=== PATIENT | female | born 1965 | race Caucasian/White ===

== ENCOUNTER 2019-10-26 14:39 | Outpatient (CLI) | payer BC, SELFPAY ==
--- NOTE | ~2019-10-26 | MM_ITS ---
EXAMINATION: MM screening [facility] BI w ezra HISTORY: Screening mammogram TECHNIQUE: Craniocaudal and mediolateral oblique 3-D tomosynthesis images were obtained and synthetic 2-D images were generated. CAD analysis was submitted and interpreted. COMPARISON: 10/20/2018, 09/08/2017, 09/04/2016 bilateral digital screening mammogram examinations BREAST PARENCHYMAL COMPOSITION: There are scattered areas of fibroglandular density. FINDINGS: A biopsy marker is noted on the right. There are several biopsy markers on the left. Histor y of prior benign bilateral breast biopsies. There is no evidence of suspicious mass, calcification, or architectural distortion to suggest malignancy in either breast. There has been no suspicious inte rval change. IMPRESSION: 1. No mammographic evidence of malignancy. 2. Recommend routine screening mammography in one year. BI-RADS Category 1: Negative Reviewed, dictated and finalized at location A. 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
== END 2019-10-26 14:40 | disposition home or self-care (01) ==
LOC: ANHIMG 14:42
PROVIDERS: PCP Internal Medicine; Visit Provider Student in an Organized Health Care Education/Training Program
DX: Z12.31 Encounter for screening mammogram for malignant neoplasm of breast (principal)
CPT/HCPCS: 77063; 77067

== ENCOUNTER 2020-11-05 08:43 | Outpatient (CLI) | payer BC, SELFPAY ==
--- NOTE | ~2020-11-05 | MM_ITS ---
EXAMINATION: MM screening [facility] w [facility] HISTORY: Screening mammogram TECHNIQUE: Craniocaudal and mediolateral oblique 3-D tomosynthesis images were obtained and synthetic 2-D images were generated. CAD analysis was submitted and interpreted. COMPARISON: 10/26/2019, 10/20/2018, 09/08/2017 bilateral digital screening mammogram examinations BREAST PARENCHYMAL COMPOSITION: There are scattered areas of fibroglandular density. FINDINGS: There are bilateral breast biopsy markers; history of prior benign bilateral breast biopsie s. There is no evidence of suspicious mass, calcification, or architectural distortion to suggest mal ignancy in either breast. There has been no suspicious interval change. IMPRESSION: 1. No mammographic evidence of malignancy. 2. Recommend routine screening mammography in one year. BI-RADS Category 1: Negative Reviewed, dictated and finalized at location A. 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
== END 2020-11-05 08:44 | disposition home or self-care (01) ==
LOC: ANHIMG 08:46
PROVIDERS: PCP Internal Medicine; Visit Provider Student in an Organized Health Care Education/Training Program
DX: Z12.31 Encounter for screening mammogram for malignant neoplasm of breast (principal)
CPT/HCPCS: 77063; 77067

== ENCOUNTER 2021-11-12 17:29 | Outpatient (CLI) | payer BC, SELFPAY ==
--- NOTE | ~2021-11-12 | MM_ITS ---
EXAMINATION: MM screening [facility] BI w ezra HISTORY: Screening TECHNIQUE: Craniocaudal and mediolateral oblique 3-D tomosynthesis images were obtained and synthetic 2-D images were generated. CAD analysis was submitted and interpreted. COMPARISON: Comparison to multiple prior studies sequentially, with oldest reviewed study dated 04/2016. BREAST PARENCHYMAL COMPOSITION: There are scattered areas of fibroglandular density. FINDINGS: There is no evidence of suspicious mass, calcification, or architectural distortion to sugg est malignancy in either breast. There has been no suspicious interval change. IMPRESSION: 1. No mammographic evidence of malignancy. 2. Recommend routine screening mammography in one year. BI-RADS Category 1: Negative Reviewed, dictated and finalized at location A. 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
== END 2021-11-12 17:30 | disposition home or self-care (01) ==
LOC: ANHIMG 17:30
PROVIDERS: PCP Internal Medicine; Visit Provider Student in an Organized Health Care Education/Training Program
DX: Z12.31 Encounter for screening mammogram for malignant neoplasm of breast (principal)
CPT/HCPCS: 77063; 77067

== ENCOUNTER 2022-12-27 08:24 | Outpatient (CLI) | payer BC, SELFPAY ==
--- NOTE | ~2022-12-27 | MM_ITS ---
EXAMINATION: MM screening [facility] w ez[facility] HISTORY: Screening mammogram TECHNIQUE: Craniocaudal and mediolateral oblique 3-D tomosynthesis images were obtained and synthetic 2-D images were generated. CAD analysis was submitted and interpreted. COMPARISON: November 12, 2021, August 05, 2021, October 26, 2019 bilateral screening mammogram [facility] BREAST PARENCHYMAL COMPOSITION: There are scattered areas of fibroglandular density. FINDINGS: There is a biopsy marker on the right than several biopsy markers on the left; history of b ilateral benign breast biopsies. There is no evidence of suspicious mass, calcification, or microsoft dynamics manager architect ural distortion to suggest malignancy in either breast. There has been no suspicious interval change. IMPRESSION: 1. No mammographic evidence of malignancy. 2. Recommend routine screening mammography in one year. BI-RADS Category 1: Negative Reviewed, dictated and finalized at location A.
== END 2022-12-27 08:25 | disposition home or self-care (01) ==
LOC: ANHIMG 08:30
PROVIDERS: PCP Obstetrics & Gynecology; Visit Provider Physician Assistant
DX: Z12.31 Encounter for screening mammogram for malignant neoplasm of breast (principal)
CPT/HCPCS: 77063; 77067

== ENCOUNTER 2023-06-24 16:44 | Emergency (ER) | payer BC, SELFPAY ==
--- NOTE | ~2023-06-24 | XR_ITS ---
EXAMINATION: XR ankle LT min 3V DATE: 06/24/2023 17:07 INDICATION: Twisting left ankle injury TECHNIQUE: Anteroposterior, oblique, mortise, and lateral views of the left ankle were obtained. COMPARISON: None. FINDINGS: Minimal distraction of a minute avulsion fracture fragment arising from the tip of the medial malleol us no other fractures identified. Bone alignment is normal with a congruent ankle mortise. Joint spac es are normal. Large plantar calcaneal spur. Soft tissue swelling about the ankle most prominent late [place] but also seen anteriorly and medially. IMPRESSION: 1. Minimally displaced minute avulsion fracture fragment at the tip of the medial malleolus. Reviewed, dictated and finalized at location A. IMPRESSION: 1. Minimally displaced minute avulsion fracture fragment at the tip of the medi al malleolus.
[2023-06-24 17:22] VITALS: BP 108/85; PULSE 75; RESP 16; TEMP 36.6; O2SAT 98
--- NOTE | 2023-06-24 17:41 | ED.LOWEXIN ---
HPI - Extremity Injury (Lower) General Chief Complaint: Extremity Injury, Lower Stated Complaint: L ANKLE INJURY Time Seen by Provider: 06/24/23 17:33 Source: patient and RN notes reviewed Mode of arrival: wheelchair Limitations: no limitations History of Present Illness HPI Narrative: Patient presents today complaining a left ankle injury. At 8:00 p.m. last night she rolled her left ankle off the edge of a sidewalk, injuring it. She reports some tingling in her toes in numbness to her ankle. She currently rates her pain 7/10. She has elevated the ankle and applied ice. She has taken no medication for symptoms prior to arrival. Related Data Home Medications Medication Instructions Recorded Confirmed ascorbic acid (vitamin C) 500 mg 500 mg PO DAILY 11/21/20 06/24/23 capsule cholecalciferol (vitamin D3) 25 25 mcg PO DAILY 11/21/20 mcg (1,000 unit) capsule albuterol sulfate 90 mcg/actuation 1 inh inhalation Q4H 03/25/23 06/24/23 aerosol inhaler escitalopram oxalate 20 mg tablet 20 mg PO DAILY 03/25/23 irbesartan 150 mg tablet 150 mg PO DAILY 03/25/23 nebivolol 5 mg tablet 5 mg PO DAILY 03/25/23 Allergies Allergy/AdvReac Type Severity Reaction Status Date / Time No Known Allergies Allergy Verified 06/24/23 17:26 Review of Systems Review of Systems: CONSTITUTIONAL: Denies body aches, fever, chills, or sweats. EYES: Denies visual changes, redness, or discharge. ENT: Denies rhinorrhea, congestion, sore throat, or otalgia. CARDIOVASCULAR: Denies chest pain, palpitations, or edema. RESPIRATORY: Denies cough or dyspnea. GASTROINTESTINAL: Denies abdominal pain, nausea, vomiting, or diarrhea. GENITOURINARY: Denies dysuria or hematuria. SKIN: Denies rash, itching, or wounds. MUSCULOSKELETAL: Denies back pain, or myalgia.+ left ankle injury NEUROLOGIC: Denies headache, numbness, tingling, or weakness. PSYCH: Denies depression or anxiety. [facility] Past Medical History Medical History Hypertension Vaginal delivery Varicose vein of leg Surgical History Surgical History History of breast biopsy History of endometrial ablation History of tubal ligation Previous section [place] teeth removed Family History Family History Grandparent Family history of lung cancer, Onset Age: 72 Family history of malignant neoplasm of esophagus, Onset Age: 75 Family history of malignant neoplasm Mother Cerebrovascular accident Hypertension Social History Social History Smoking status: Never smoker Second hand tobacco smoke exposure: No Alcohol intake: current Substance use: never Substance use type: does not use Lack of Transportation: No Lack of Food: Never True Current Housing: I Have Housing Concerned About Future Housing: No Difficulty Paying Gas/Electric Bills: No Difficulty Paying for Meds: No Currently Unemployed: YES Education: High School Diploma/GED Difficulty w/ Childcare or Family Care: No Living arrangements: with family Occupation/Education: occupation Gender identity (if verbalized by the patient): Female Sexual Orientation (if Verbalized by the Patient): Straight or Heterosexual Spiritual care concerns: No Comments At time of signature, I have reviewed and agree with nursing past medical, surgical, social and family history unless otherwise noted. Please see nursing chart for further information. There is no relevant family history pertinent to the presenting complaint Exam Narrative: GENERAL: Well-appearing, well-nourished, and in no acute distress. HEAD: Normocephalic, atraumatic. EYES: EOMI. No redness or drainage. Conjunctivae normal. ENT: Mucous membranes pink and moist. NECK: Normal AROM.
== END 2023-06-24 17:57 | disposition home or self-care (01) ==
PROVIDERS: Emergency Provider Nurse Practitioner; PCP Physician Assistant
DX: S82.892A Other fracture of left lower leg, initial encounter for closed fracture (principal); S93.402A Sprain of unspecified ligament of left ankle, initial encounter; I10 Essential (primary) hypertension; Z79.899 Other long term (current) drug therapy; X50.0XXA Overexertion from strenuous movement or load, initial encounter
CPT/HCPCS: 73610; 99214; G0463

== ENCOUNTER 2023-12-31 13:29 | Outpatient (CLI) | payer BC, SELFPAY ==
--- NOTE | ~2023-12-31 | MM_ITS ---
EXAMINATION: MM screening [facility] BI w ezra HISTORY: Screening TECHNIQUE: Craniocaudal and mediolateral oblique 3-D tomosynthesis images were obtained and synthetic 2-D images were generated. CAD analysis was submitted and interpreted. COMPARISON: Comparison to multiple prior studies sequentially, with oldest reviewed study dated 08/28. BREAST PARENCHYMAL COMPOSITION: There are scattered areas of fibroglandular density. FINDINGS: There is no evidence of suspicious mass, calcification, or architectural distortion to sugg est malignancy in either breast. There has been no suspicious interval change. IMPRESSION: 1. No mammographic evidence of malignancy. 2. Recommend routine screening mammography in one year. BI-RADS Category 1: Negative Reviewed, dictated and finalized at location A.
== END 2023-12-31 13:30 | disposition home or self-care (01) ==
PROVIDERS: PCP Physician Assistant; Visit Provider Obstetrics & Gynecology
DX: Z12.31 Encounter for screening mammogram for malignant neoplasm of breast (principal)
CPT/HCPCS: 77063; 77067

== ENCOUNTER 2024-12-31 07:59 | Outpatient (CLI) | payer OTHER, SELFPAY ==
--- NOTE | ~2024-12-31 | MM_ITS ---
EXAMINATION: MM screening [facility] BI w ezra HISTORY: Screening TECHNIQUE: Craniocaudal and mediolateral oblique 3-D tomosynthesis images were obtained and synthetic 2-D images were generated. CAD analysis was submitted and interpreted. COMPARISON: Comparison to multiple prior studies sequentially, with oldest reviewed study dated 10/20. BREAST PARENCHYMAL COMPOSITION: Not dense: There are scattered areas of fibroglandular density. FINDINGS: There is no evidence of suspicious mass, calcification, or architectural distortion to sugg est malignancy in either breast. There has been no suspicious interval change. IMPRESSION: 1. No mammographic evidence of malignancy. 2. Recommend routine screening mammography in one year. BI-RADS Category 1: Negative Reviewed, dictated and finalized at location A.
--- OUTSIDE RECORDS SUMMARY | 2024-12-31 08:03 | XMS_ITS | Clinical Summary ---
Author Organization [facility] Address [address] [place] [phone] Care Team Providers Care Contact Lens Polisher Name Role Phone Rufina Adler Primary Care Provider [phone] Allergies No known active allergies Medications ascorbic acid (VITAMIN C) 500 mg tablet,chewabl e Active cholecalcifero l, vitamin D3, (VITAMIN D3 ORAL) Take by mouth Active zinc 50 mg tablet Take by mouth Active turmeric root extract 500 mg capsule Take by mouth Active fluticasone propionate (FLONASE) 50 mcg/actuation nasal spray Administer 2 sprays into each nostril daily 16 g 5 022 Active fexofenadine (SHAVON) 180 mg tablet Take 1 tablet (180 mg total) by mouth daily as needed (allergies) 90 tablet 1 022 Active albuterol HFA (PROVENTIL HFA,VENTOLIN HFA,PROAIR HFA) 90 mcg/actuation inhaler INHALE 2 PUFFS EVERY FOUR HOURS NEEDED FOR WHEEZING 8.5 g 2 024 Active liraglutide, weight loss, 3 mg/0.5 mL (18 mg/3 mL) pen injectorIndica tions:Weight Loss Management for Obese Patient (BMI >= 30) Indications: weight loss management for a person with obesity Inject 0.6mg subcutaneously once daily x 7 days, then Increase to 1.2mg subcutaneously once daily x 7days, then Increase to 1.8mg subcutaneously once daily x 7 days, then Increase to 2.4mg subcutaneously once daily x 7 days, then Increase to 3 mg subcutaneously once daily as maintenance 3 mL 1 025 Active semaglutide (WEGOVY) 0.25 mg/0.5 mL auto-injectorI ndications:Obe sity, unspecified class, unspecified obesity type, unspecified whether serious comorbidity present Inject 0.25 mg under the skin every 7 days 2 mL 025 2024 Discontinued(R eorder) semaglutide (WEGOVY) 0.25 mg/0.5 mL auto-injectorI ndications:Obe sity, unspecified class, unspecified obesity type, unspecified whether serious comorbidity present Inject 0.25 mg under the skin every 7 days 2 mL 025 2024 Discontinued(R eorder) semaglutide (WEGOVY) 0.25 mg/0.5 mL auto-injectorI ndications:Obe sity, unspecified class, unspecified obesity type, unspecified whether serious comorbidity present Inject 0.25 mg under the skin every 7 days 2 mL 025 2024 Discontinued Active Problems Problem Noted Date Diagnosed Date Colon cancer screening 11/20/2024 Assessment & Plan (11/20/2024 4:22 PM [facility]): Patient is due for colon cancer screening. Referral placed Breast cancer screening by mammogram 11/20/2024 Assessment & Plan (11/20/2024 4:22 PM [facility]): Mammogram order provided BMI 28.0-28.9,adult 11/09/2024 Assessment & Plan (11/09/2024 7:19 AM [facility]): BMI Follow-up includes: Discussed diet and exercising counseling. Recurrent major depression 01/27/2024 Assessment & Plan (02/22/2024 9:18 PM CDT): Stable with Effexor 37.5. Sleep disturbance 10/27/2022 Assessment & Plan (10/27/2022 9:12 AM [facility]): Patient notes that she does have trouble falling asleep. She states it is primarily because her h ead will not shut off . Discussed medication interventions like trazodone versus other sleep agents. Also discussed an SSRI like Lexapro. Most interested in Lexapro. Hesitant to start 2 medicines at the same time. Will go ahead and start the irbesartan for blood pressure. At her follow-up in 3-4 weeks will then re-assess and if continues to have sleep issues will consider the Lexapro. Seasonal allergies 10/27/2022 Assessment & Plan (10/27/2022 9:13 AM [facility]): Encouraged daily use of her Shavon and Flonase. She can consider adding in a Mucinex if she is having a lot of postnasal drainage to see if this is causing the cough verses more of a reactive airway from the cold. 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 Also encouraged her to keep her face covered in the cold air so she is breathing more warm areas set of completely cold air. Will continue to monitor closely and follow-up if her symptoms worsen Vitamin D deficiency 10/17/2021 Assessment & Plan (06/14/2024 8:24 AM CDT): Continue to supplement Assessment & Plan (10/29/2023 8:29 AM [facility]): Supplement Assessment & Plan (10/27/2022 9:08 AM [facility]): Supplement Assessment & Plan (11/27/2021 8:02 AM [facility]): Continue vitamin-D supplementation Assessment & Plan (10/17/2021 6:50 PM [facility]): Supplement Primary hypertension 10/17/2021 Assessment & Plan (11/20/2024 4:21 PM [facility]): Patient has stopped all her blood pressure medicines. Readings have been stable. She can continue with home readings and if they elevate above 125 over 85 she needs to call and consider restarting low-dose medication. She is in agreement with the plan Assessment & Plan (06/14/2024 8:24 AM CDT): Bp is stable/in acceptable range for any co-morbidities. Encouraged to limit sodium intake and exercise for weight control. Continue Bystolic 5 mg. I added this back on her list. Will have her restart the irbesartan at 75 mg in the a.m.. Continue the amlodipine decreasing to 2.5 mg in the p.m.. Encouraged her to MyChart in the next week or 2 with readings to make sure that they remain stable Assessment & Plan (02/22/2024 9:16 PM CDT): Bp is stable/in acceptable range for any co-morbidities. Encouraged to limit sodium intake and exercise for weight control. Appears well controlled. Continue the irbesartan 150 daily and amlodipine 5 mg daily. 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 If systolic remains below 110, May need to cut the amlodipine in half. I would also avoid diuretic in this patient. Assessment & Plan (10/29/2023 8:29 AM [facility]): This is a significant, separately identifiable problem that was evaluated and managed on the same day as the wellness exam Encouraged to limit sodium intake and exercise for weight control. Reviewed it is unlikely that the antihypertensive or contributing to weight gain. Stressed the importance of better control of the blood pressure. She is willing to continue the irbesartan 150. Start amlodipine 5. She is to call in 1-2 weeks with readings. Follow-up in 2-3 months in the office to recheck. Assessment & Plan (01/24/2023 9:04 PM CDT): Bp is stable/in acceptable range for any co-morbidities. Encouraged to limit sodium intake and exercise for weight control. Continue Bystolic 5 and irbesartan 150. Assessment & Plan (11/29/2022 5:54 PM [facility]): Bp is stable/in acceptable range for any co-morbidities. Encouraged to limit sodium intake and exercise for weight control. Better controlled with the addition of the Bystolic. Continue 5 mg with the irbesartan. Will continue to monitor closely Assessment & Plan (10/27/2022 9:12 AM [facility]): This is a significant, separately identifiable problem that was evaluated and managed on the same day as the wellness exam Encouraged to limit sodium intake and exercise for weight control. Readings are better controlled with the Bystolic 5. However her home readings are still showing consistent diastolic in the low to mid 90s. She is tolerating the Bystolic well. Pulse is running in the mid 60s. Will continue Bystolic 5. Will add an ARB irbesartan 75 to her regimen. She is to take the Bystolic at night and the ear irbesartan in the morning. Recheck home readings and call if she is not beginning to see drop. Will have her back in the office in 3-4 weeks to reassess. Assessment & Plan (11/27/2021 8:02 AM [facility]): BP is still elevated but improving. Increase Bystolic to 5 mg. She may take 2 2.5 mg tablets to make the 5 mg tablets until her supply is exhausted and then will send out a 5 mg dose. Follow-up in about 2 weeks to reassess blood pressure. She has a form today that I completed that allow her to get a blood pressure cuff so she can continue to monitor her readings at home. Encouraged her to bring it to her next visit to calibrate . Encouraged to limit sodium intake and exercise for weight control. Assessment & Plan (10/17/2021 6:52 PM [facility]): This is a significant, separately identifiable problem that was evaluated and managed on the same day as the wellness exam Encouraged to limit sodium intake and exercise for weight control. Encourage dash diet and monitoring sodium intake. Discussed at length high blood pressure and sequela of untreated blood pressure. She is very aware but still very anxious about the idea of starting a blood pressure medicine. Reviewed at length the blood pressure medication options and how they work and how it could benefit some of this increased stress and h igh energy feeling that she has. Will start Bystolic 2.5 mg 1 daily. Reviewed risks benefits alternatives side effects and proper use. All questions were answered. Encouraged her to take it daily until she comes back and sees me. She wants to put that off for 6 weeks due to her scheduling. Advised if she is taking home readings and they are still very high may need to increase to 5 but will do that slowly. She is in agreement. Resolved Problems Problem Noted Date Diagnosed Date Resolved Date Fatigue 06/14/2024 11/20/2024 Assessment & Plan (06/14/2024 8:24 AM CDT): Probably multifactorial. Check labs and followup to re-evaluate Diabetes mellitus screening 06/14/2024 11/20/2024 Assessment & Plan (06/14/2024 8:25 AM CDT): Check labs Lipid screening 06/14/2024 11/20/2024 Assessment & Plan (06/14/2024 8:25 AM CDT): Check labs Acute cough 03/23/2024 06/14/2024 Assessment & Plan (03/23/2024 12:59 PM CDT): Patient was tested for COVID - negative Flu a and B- negative Strep - positive Acute non-recurrent pansinusitis 03/23/2024 06/14/2024 Assessment & Plan (03/23/2024 12:58 PM CDT): Start antibiotic, antihistamine (Claritin OR Zyrtec), Mucinex 12hour and Steroid nasal spray (Flonase). Push fluids. Rest. Supportive care. If sxs worsen or don\'t improve, pt is to followup in the office. Augmentin sent to the pharmacy. Reviewed risks benefits alternatives side effects and proper use Strep test came back negative after patient left. She was notified of the positive and ways to avoid transmission but that the treatment would still be the same. Strep pharyngitis 03/23/2024 06/14/2024 Assessment & Plan (03/23/2024 12:58 PM CDT): Start antibiotic, antihistamine (Claritin OR Zyrtec), Mucinex 12hour and Steroid nasal spray (Flonase). Push fluids. Rest. Supportive care. If sxs worsen or don\'t improve, pt is to followup in the office. Augmentin sent to the pharmacy. Reviewed risks benefits alternatives side effects and proper use Strep test came back negative after patient left. She was notified of the positive and ways to avoid transmission but that the treatment would still be the same. BMI 33.0-33.9,adult 10/29/2023 01/27/20 Assessment & Plan (10/29/2023 7:25 AM [facility]): Discussed the patient's BMI. The BMI is above average. BMI management plan is completed. BMI Follow-up includes: nutrition counseling, exercise counseling and education provided. Breast cancer screening by mammogram 10/29/2023 02/22/2024 Assessment & Plan (10/29/2023 8:30 AM [facility]): Mammogram order provided BMI 32.0-32.9,adult 11/25/2022 10/29/19 Assessment & Plan (01/24/2023 9:05 PM CDT): Discussed the patient's BMI. The BMI is above average. BMI management plan is completed. BMI Follow-up includes: nutrition counseling, exercise counseling and education provided. Assessment & Plan (11/25/2022 3:12 PM [facility]): Discussed the patient's BMI. The BMI is above average. BMI management plan is completed. BMI Follow-up includes: nutrition counseling, exercise counseling and education provided. Obesity (BMI 30-39.9) 11/25/20222024 Assessment & Plan (06/14/2024 7:28 AM CDT): Discussed the patient's BMI. The BMI is above average. BMI management plan is completed. BMI Follow-up includes: nutrition counseling, exercise counseling and education provided. Assessment & Plan (03/23/2024 1:00 PM CDT): Discussed the patient's BMI. The BMI is above average. BMI management plan is completed. BMI Follow-up includes: nutrition counseling, exercise counseling and education provided. Patient continues to use the Wegovy 0.5 mg. She continues to see improvement with her weight and is seeing that her appetite is being curved and she can recognize when she is full. Would like to increase to 1 mg dosing. New prescription sent. Assessment & Plan (02/22/2024 9:16 PM CDT): Discussed the patient's BMI. The BMI is above average. BMI management plan is completed. BMI Follow-up includes: nutrition counseling, exercise counseling and education provided. Assessment & Plan (10/29/2023 8:30 AM [facility]): Discussed the patient's BMI. The BMI is above average. BMI management plan is completed. BMI Follow-up includes: nutrition counseling, exercise counseling and education provided. Patient inquired about G LP. No history of pancreatitis. Reviewed risks benefits alternatives side effects and proper use. Encouraged her to check with her insurance to see about coverage on Wegovy and orZepbound as these of the indicated G LP ease with weight loss. Assessment & Plan (01/24/2023 9:05 PM CDT): Discussed the patient's BMI. The BMI is above average. BMI management plan is completed. BMI Follow-up includes: nutrition counseling, exercise counseling and education provided. Assessment & Plan (11/25/2022 3:12 PM [facility]): Discussed the patient's BMI. The BMI is above average. BMI management plan is completed. BMI Follow-up includes: nutrition counseling, exercise counseling and education provided. Recurrent major depression 11/25/2022 0 11/29/2022 BMI 33.0-33.9,adult 10/27/2022 11/25/19 23 Assessment & Plan (10/27/2022 9:10 AM [facility]): Discussed the patient's BMI. The BMI is above average. BMI management plan is completed. BMI Follow-up includes: nutrition counseling, exercise counseling and education provided. Fatigue 10/27/2022 02/22/2024 Assessment & Plan (10/27/2022 9:10 AM [facility]): Probably multifactorial. Check labs and followup to re-evaluate Diabetes mellitus screening 10/27/2022 01/24/2023 Assessment & Plan (10/27/2022 9:10 AM [facility]): Check labs Lipid screening 10/27/2022 02/22/2024 Assessment & Plan (10/27/2022 9:10 AM [facility]): Check labs Encounter for screening mamm ogram for malignant neoplasm of breast 10/27/2022 10/29/2023 Assessment & Plan (10/27/2022 9:10 AM [facility]): Mammogram order provided Annual physical exam 10/27/2022 024 Assessment & Plan (10/29/2023 8:30 AM [facility]): Encouraged healthy lifestyle, good nutrition and exercise. Encouraged Calcium and Vitamin D and weight bearing exercise for bone health. Reviewed immunizations Reviewed age appropirate screenings. Assessment & Plan (10/27/2022 9:10 AM [facility]): Encouraged healthy lifestyle, good nutrition and exercise. Encouraged Calcium and Vitamin D and weight bearing exercise for bone health. Reviewed immunizations Reviewed age appropirate screenings. Obesity (BMI 30-39.9) 11/27/20212022 Assessment & Plan (10/27/2022 9:09 AM [facility]): Discussed the patient's BMI. The BMI is above average. BMI management plan is completed. BMI Follow-up includes: nutrition counseling, exercise counseling and education provided. Assessment & Plan (11/27/2021 7:37 AM [facility]): Obesity is unchanged. Discussed the patient's BMI. The BMI is above average. BMI management plan is completed. BMI Follow-up includes: nutrition counseling, exercise counseling and education provided. BMI 30.0-30.9,adult 11/27/2021 11/09/19 25 Assessment & Plan (06/14/2024 7:28 AM CDT): Discussed the patient's BMI. The BMI is above average. BMI management plan is completed. BMI Follow-up includes: nutrition counseling, exercise counseling and education provided. Assessment & Plan (03/23/2024 12:59 PM CDT): Discussed the patient's BMI. The BMI is above average. BMI management plan is completed. BMI Follow-up includes: nutrition counseling, exercise counseling and education provided. Assessment & Plan (02/22/2024 9:16 PM CDT): Discussed the patient's BMI. The BMI is above average. BMI management plan is completed. BMI Follow-up includes: nutrition counseling, exercise counseling and education provided. Assessment & Plan (11/27/2021 7:37 AM [facility]): Obesity is unchanged. Discussed the patient's BMI. The BMI is above average. BMI management plan is completed. BMI Follow-up includes: nutrition counseling, exercise counseling and education provided. BMI 29.0-29.9,adult 10/17/2021 11/28/19 Assessment & Plan (10/17/2021 2:24 PM [facility]): Weight/BMI is in healthy range. Continue healthy lifestyle to maintain. Diabetes mellitus screening 10/17/2021 11/27/2021 Assessment & Plan (10/17/2021 6:49 PM [facility]): Check labs Lipid screening 10/17/2021 11/27/2021 Assessment & Plan (10/17/2021 6:49 PM [facility]): Check labs Fatigue 10/17/2021 11/27/2021 Assessment & Plan (10/17/2021 6:50 PM [facility]): Probably multifactorial. Check labs and followup to re-evaluate Stress 10/17/2021 02/22/2024 Assessment & Plan (10/29/2023 8:29 AM [facility]): Encouraged to continue Effexor 37.5 daily. Reminded her this is not an as-needed basis that it does it is best job when you take it daily every day. Cold turkey stopping can lead to withdrawal side effects. Assessment & Plan (01/24/2023 9:05 PM CDT): Patient doing well with Effexor 37.5. Continue to monitor. She feels like her septic control plateaus may call for an increased dose Assessment & Plan (11/29/2022 5:54 PM [facility]): Patient continues to have increased stress and is not sleeping well. Feels like her head continues to cycle 3. Recommend Lexapro. Reviewed risks benefits alternatives side effects and proper use. Will have her follow-up in 6-8 weeks to reassess see if this is helpful. Will continue monitor blood pressure but the systolic is much better with the addition of the Bystolic. Follow-up in 6-8 weeks Assessment & Plan (11/27/2021 8:03 AM [facility]): Is noting a little improvement with the Bystolic. Will continue to monitor. Assessment & Plan (10/17/2021 6:53 PM [facility]): This is a significant, separately identifiable problem that was evaluated and managed on the same day as the wellness exam Patient states she does not really feel stressed or depressed she just feels like she has a lot of extra energy. States he has been like this her whole life. Difficulty setting her head off. Discussed starting an SSRI versus SNRI verses the Bystolic. Reviewed risks benefits of each of these. Will start with a beta-chon and see if we get some cross coverage for this stressed that is there a. If it improves but is still not fully controlled may revisit an SNRI or SSRI. She may call at any time with questions. Annual physical exam 10/17/2021 022 Assessment & Plan (10/17/2021 6:54 PM [facility]): Encouraged healthy lifestyle, good nutrition and exercise. Encouraged Calcium and Vitamin D and weight bearing exercise for bone health. Reviewed immunizations Reviewed age appropirate screenings. Seasonal allergic rhinitis due to pollen 10/17/2021 11/27/2021 Assessment & Plan (10/17/2021 6:54 PM [facility]): Persistent allergic rhinitis/seasonal allergies. She is on Shavon. Her requests a prescription to see if she can get it cheaper. Also encouraged her to start Flonase. Will send a prescription. If the nasal steroid does not open her up she may benefit from seeing an ENT to rule out any polyps or other abnormalities in the nasal passage since she states she always feels congested regardless of what she does. Advised if she does have dryness from the Flonase may use nasal saline spray for comfort. Encounters Date Type Department Care Team Description 12/07/[address] [place] [phone] Rufina Adler PA 12/05/2024 Orders Only [address] [place] [phone] Rufina Adler PA 12/05/[address] [place] [phone] Rufina Adler PA 12/05/[address] [place] [phone] Rufina Adler PA 12/05/[address] [place] [phone] Rufina Adler PA 11/09/2024 7:00 AM [facility] Office Visit [address] [place] [phone] Rufina Adler PA Primary hypertension (Primary Dx); Breast cancer screening by mammogram; Colon cancer screening; BMI 28.0-28.9,adult from Last 3 Months Immunizations Immunization Administration Dates Next Due Influenza, Unspecified 09/28/2024(Deferr ed: Patient Refused),09/28/2023(Deferred: Patient Refused),09/28/2023(Deferred: Patient Refused),09/28/2023(Deferred: Patient Refused),10/27/2022(Deferred: Patient Refused) Tdap 08/04/2024 Surgical History Surgery Date Site/Laterality Comments SECTION FRACTURE SURGERY ABLATION VASCULAR SURGERY VEIN LIGATION AND STRIPPING 09/28/2021 Medical History Medical History Date Comments Allergic Family History Medical History Relation Name Comments No Known Problems Father Hypertension Mother Stroke Mother Relation Name Status Comments Father Mother Alive Social History Tobacco Use Types Packs/Day Years Used Date Smoking Tobacco: Never Smokeless Tobacco: Never Tobacco Cessation:Counseling Given: Not Answered AUDIT-C Answer Date Recorded Q1: How often do you have a drink containing alc ohol? 2-3 times a week 01/27/2024 Q2: How many drinks containi ng alcohol do you have on a typical day when you are drinking? 1 or 2 01/27/2024 Q3: How often do you have si x or more drinks on one occasion? Never 01/27/2024 PHQ-2 Answer Date Recorded PHQ-2 Total Score (If total score is 3 or more points, staff should administer the PHQ-9) 0 11/09/2024 Comments Unknown Sex and Gender Information Value Date Recorded Sex Assigned at Not on file Legal Sex Female 1:43 PM [facility] Gender Identity Not on file Sexual Orientation Not on file Obstetrics History Last Filed Vital Signs Vital Sign Reading Time Taken Comments Blood Pressure 122/82 11/09/2024 7:12 AM [facility] Pulse 89 11/09/2024 7:12 AM [facility] Temperature 36.9 C (98.5 F) 11/09/2024 7:12 AM [facility] Respiratory Rate 16 06/14/2024 7:25 AM CDT Oxygen Saturation 98% 11/09/2024 7:12 AM [facility] Inhaled Oxygen Concentration - - Weight 79.9 kg (176 lb 1.6 oz) 11/09/2024 7:12 A M [facility] Height 167.6 cm (5' 6 ) 11/09/2024 7:12 AM [facility] Body Mass Index 28.42 11/09/2024 7:12 AM [facility] Plan of Treatment Health Maintenance Due Date Last Done Comments Cervical Cancer Screening 1966 Hepatitis C Screening 1966 Hepatitis B Screening 1984 Zoster Vaccine (1 of 2) 2016 Regular Well Visit/Exam 18-64 10/29/2024 10/29/2023, 10/27/2022, 10/17/2021 Breast Cancer Screening-Mammogram 12/30/2024 12/31/2023, 12/27/2022 Influenza Vaccine (#1) 2025 Postp oned from 05/29/2024 (Patient declined, but will receive in the future) Depression Screening 11/09/2025 11/09/2024, 06/14/2024, 03/23/2024, Additional history exists Colon Cancer Screening-Colonoscopy 03/15/2029 03/15/2019 DTaP/Tdap/Td Vaccine (2 - Td or Tdap) 08/04/2034 08/04/2024 Pneumococcal vaccine <65 Aged Out No longer eligible based on patient's age to complete this topic Procedures Procedure Name Priority Date/Time Associated Diagnosis Comments VITAMIN D 25 HYDROXY Routine 11/02/2024 7:19 AM [facility] Vitamin D deficiency VITAMIN B12 Routine 11/02/2024 7:19 AM [facility] Fatigue, unspecified type TSH Routine 11/02/2024 7:19 AM 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 STORE Fatigue, unspecified type LIPID PANEL Routine 11/02/2024 7:19 AM RECEIVING ASSOCIATE STORE Lipid screening HEMOGLOBIN A1C Routine 11/02/2024 7:19 AM RECEIVING ASSOCIATE STORE Diabetes mellitus screening COMPREHENSIVE METABOLIC PANEL Routine 11/02/2024 7:19 AM RECEIVING ASSOCIATE STORE Primary hypertension CBC WITH AUTO DIFFERENTIAL Routine 11/02/2024 7:19 AM RECEIVING ASSOCIATE STORE Fatigue, unspecified type SCREENING MAMMOGRAM BILATERAL W RODRIGUE Schedule Routine, Read Routine (OP Routine) 12/31/2023 Breast cancer screening by mammogram HM COLONOSCOPY Routine 03/15/2019 from Last 3 Months or Most Recently Relevant to Health Maintenance Results * CBC with auto differential (11/02/2024 7:19 AM RECEIVING ASSOCIATE STORE) WBC 4.8 3.8 - 10.8 Thousand/u L [facility] RBC, POC 4.73 3.80 - 5.10 Million/uL [facility] Hgb 14.3 11.7 - 15.5 g/dL [facility] Hct 43.3 35.0 - 45.0 % [facility] MCV 91.5 80.0 - 100.0 fL [facility] MCH 30.2 27.0 - 33.0 pg [facility] MCHC 33.0 32.0 - 36.0 g/dL [facility] Comment: For adults, a slight decrease in the calculated MCHC value (in the range of 30 to 32 g/dL) is most likely not clinically significant; however, it should be interpreted with caution in correlation with other red cell parameters and the patient's clinical condition. Rdw 12.8 11.0 - 15.0 % [facility] Platelets 276 140 - 400 Thousand/u L [facility] MPV 10.5 7.5 - 12.5 fL [facility] Neutrophils, abs 2,285 1,500 - 7,800 cells/uL [facility] Lymphocytes, abs 1,867 850 - 3,900 cells/uL [facility] Monocyte abs 422 200 - 950 cells/uL [facility] Eosinophils, abs 173 15 - 500 cells/uL [facility] Basophils, abs 53 0 - 200 cells/uL [facility] Neutrophils 47.6 % [facility] Lymphocyte pct 38.9 % [facility] Monocytes 8.8 % [facility] Eosinophils 3.6 % [facility] Basophils 1.1 % [facility] Blood 11/02/2024 7:19 AM RECEIVING ASSOC[facility]ATE STORE 11/02/2024 7:20 AM RECEIVING ASSOCIATE STORE Narrative [facility] - 11/03/2024 2:03 AM RECEIVING [facility]OC[facility]ATE STORE FASTING:YES FASTING: YES us Rufina GRANT LAB BLOOD ORDERABLES Final Result [facility] [address] [place] [phone] * Vitamin D 25 hydroxy (11/02/2024 7:19 AM RECEIVING ASSOCIATE STORE) Pathologist [facility] Vitamin D 25-OH 85 30 - 100 ng/mL [facility] Comment: Vitamin D Status 25-OH Vitamin D: Deficiency: <20 ng/mL Insufficiency: 20 - 29 ng/mL Optimal: > or = 30 ng/mL For 25-OH Vitamin D testing on patients on D2-supplementation and patients for whom quantitation of D2 and D3 fractions is required, the [facility]ure[facility](TM) 25-OH VIT D, (D2,D3), LC/MS/MS is recommended: order code 13016 (patients >2yrs). See Note 1 Note 1 For additional information, please refer to http://education.[employer]/faq/HJD534 (This link is being provided for informational/ educational purposes only.) Blood 11/02/2024 7:19 AM RECEIVING ASSOCIATE STORE 11/02/2024 7:20 AM RECEIVING ASSOCIATE STORE Narrative [facility] - 11/03/2024 2:03 AM RECEIVING ASSOCIATE STORE FASTING:YES FASTING: YES Rufina GRANT LAB BLOOD ORDERABLES Final Result Performing Organization Address [facility]/ZIP Co de Phone Number [facility] [address] [place] [address] * TSH (11/02/2024 7:19 AM RECEIVING ASSOCIATE STORE) Pathologist [facility] TSH 0.90 0.40 - 4.50 mIU/L [facility] Blood 11/02/2024 7:19 AM RECEIVING ASSOCIATE STORE 11/02/2024 7:20 AM RECEIVING ASSOCIATE STORE Narrative [facility] - 11/03/2024 2:03 AM RECEIVING ASSOCIATE STORE FASTING:YES FASTING: YES Rufina GRANT LAB BLOOD ORDERABLES Final Result Performing Organization Address [facility]/ZIP Co de Phone Number [facility] [address] [place] [address] * Hemoglobin A1c (11/02/2024 7:19 AM RECEIVING ASSOCIATE STORE) Pathologist [facility] Hgb A1C 5.6 <5.7 % of total Hgb [facility] Comment: For the purpose of screening for the presence of diabetes: <5.7% Consistent with the absence of diabetes 5.7-6.4% Consistent with increased risk for diabetes (prediabetes) > or =6.5% Consistent with diabetes This assay result is consistent with a decreased risk of diabetes. Currently, no consensus exists regarding use of hemoglobin A1c for diagnosis of diabetes in children. According to [place] [employer] (ADA) guidelines, hemoglobin A1c <7.0% represents optimal control in non- diabetic patients. Different metrics may apply to specific patient populations. Standards of Medical Care in Diabetes(ADA). Blood 11/02/2024 7:19 AM RECEIVING ASSOCIATE STORE 11/02/2024 7:20 AM RECEIVING ASSOCIATE STORE Narrative [facility] - 11/03/2024 2:03 AM RECEIVING ASSOCIATE STORE FASTING:YES FASTING: YES Rufina GRANT LAB BLOOD ORDERABLES Final Result [facility] [address] [place] [address] * Vitamin B12 (11/02/2024 7:19 AM RECEIVING ASSOCIATE STORE) [facility] Vitamin B12 451 200 - 1,100 pg/mL [facility] Blood 11/02/2024 7:19 AM RECEIVING ASSOCIATE STORE 11/02/2024 7:20 AM RECEIVING ASSOCIATE STORE Narrative [facility] - 11/03/2024 2:03 AM RECEIVING ASSOCIATE STORE FASTING:YES FASTING: YES Rufina GRANT LAB BLOOD ORDERABLES Final Result [facility] [address] [place] [address] * (ABNORMAL) Lipid panel (11/02/2024 7:19 AM RECEIVING ASSOCIATE STORE) [facility] Cholesterol 187 <200 mg/dL [facility] HDL 58 > OR = 50 mg/dL [facility] Triglycerides 57 <150 mg/dL [facility] LDL 115(H) mg/dL (calc) [facility] Comment: Reference range: <100 Desirable range <100 mg/dL for primary prevention; <70 mg/dL for patients with CHD or diabetic patients with > or = 2 CHD risk factors. LDL-C is now calculated using the Qi calculation, which is a validated novel method providing better accuracy than the Friedewald equation in the estimation of LDL-C. Nj SS et al. AUBRIE. 2013;310(19): 7778-2928 (http://education.[employer]/faq/BEM428) Chol/HDL ratio 3.2 <5.0 (calc) [facility] Non-HDL, (LDL+VLDL) 129 <130 mg/dL (calc) [facility] Comment: For patients with diabetes plus 1 major ASCVD risk factor, treating to a non-HDL-C goal of <100 mg/dL (LDL-C of <70 mg/dL) is considered a therapeutic option. Blood 11/02/2024 7:19 AM RECEIVING ASSOCIATE STORE 11/02/2024 7:20 AM RECEIVING ASSOCIATE STORE Narrative [facility] - 11/03/2024 2:03 AM RECEIVING ASSOCIATE STORE FASTING:YES FASTING: YES Rufina GRANT LAB BLOOD ORDERABLES Final Result [facility] [address] [place] [address] * Comprehensive metabolic panel (11/02/2024 7:19 AM RECEIVING ASSOCIATE STORE) [facility] Glucose 99 65 - 99 mg/dL [facility] Comment: Fasting reference interval BUN 13 7 - 25 mg/dL [facility] Creatinine 0.68 0.50 - 1.03 mg/dL [facility] eGFR 101 > OR = 60 mL/min/1.7 3m2 [facility] BUN/creat ratio SEE NOTE: 6 - 22 (calc) [facility] Comment: Not Reported: BUN and Creatinine are within reference range. Sodium 140 135 - 146 mmol/L [facility] Potassium, pl 4.2 3.5 - 5.3 mmol/L [facility] Chloride 105 98 - 110 mmol/L [facility] CO2 28 20 - 32 mmol/L [facility] Calcium 9.8 8.6 - 10.4 mg/dL [facility] Protein, sr 6.4 6.1 - 8.1 g/dL [facility] Albumin 4.3 3.6 - 5.1 g/dL [facility] GLOBULIN 2.1 1.9 - 3.7 g/dL (calc) [facility] Alb/glob ratio 2.0 1.0 - 2.5 (calc) [facility] Bilirubin, total 0.4 0.2 - 1.2 mg/dL [facility] Alk phos 61 37 - 153 U/L [facility] AST 16 10 - 35 U/L [facility] ALT (SGPT) 16 6 - 29 U/L [facility] Blood 11/02/2024 7:19 AM RECEIVING ASSOCIATE STORE 11/02/2024 7:20 AM RECEIVING ASSOCIATE STORE Narrative [facility] - 11/03/2024 2:03 AM RECEIVING ASSOCIATE STORE FASTING:YES FASTING: YES Rufina GRANT LAB BLOOD ORDERABLES Final Result [facility] [address] [place] [address] * Screening Mammogram Bilateral W Rodrigue (12/31/2023) Anatomical Region Laterality Modality Breast Bilateral Mammography Rufina GRANT IMG MAMMO PROCEDURES Final Result * COLONOSCOPY (03/15/2019) Historical Provider HEALTH MAINTENANCE Edited Result - Final from Last 3 Months or Most Recently Relevant to Health Maintenance Insurance [facility] [employer] Care Teams Contact Lens Polisher Relationship Specialty Start Date End Date Rufina Adler PA [address] [facility] [address] [place] [address] PCP - General Internal Medicine 10/17/21
--- OUTSIDE RECORDS SUMMARY | 2024-12-31 08:03 | XMS_ITS | Clinical Summary ---
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 Gender Identity Not on file Sexual Orientation Not on file Plan of Treatment Health Maintenance Due Date Last Done Comments Cervical Cancer Screening Pa p Smear (Age 30 to 64) Every 3 Years 1966 Colorectal Cancer Screening Colonoscopy (10 Years) 1966 Annual Physical 1969 Hepatitis C 1984 DTaP, Tdap and Td Vaccines ( 1 - Tdap) 1985 Hepatitis B Vaccines (1 of 3 - 19+ 3-dose series) 1985 Cervical Cancer Screening Pa p with HPV Testing (Age 30 to 64) Every 5 Years 1996 Cervical Cancer Screening with HPV 1996 Mammogram Screening 2006 Zoster Vaccines (1 of 2) 2016 COVID-19 Vaccine (2023-2 5 season) 2024 Meningococcal B Vaccine Aged Out No l onger eligible based on patient's age to complete this topic Meningococcal Vaccine Aged Out No alexx kye eligible based on patient's age to complete this topic Pneumococcal Vaccine: Pediat rics (0 to 5 Years) and At-Risk Patients (6 to 64 Years) Aged Out No longer eligible b ased on patient's age to complete this topic RSV Immunizations Under 20 Months Aged Out No longer eligible based on patient's age to complete this topic Insurance Care Teams Jet Handler Relationship Specialty Start Date End Date Gabino Mohan MD [address] [place] [phone] PCP - General FAMILY PRACTICE 12/02/21
--- OUTSIDE RECORDS SUMMARY | 2024-12-31 08:03 | XMS_ITS | Referral Summary ---
Author Organization [facility] Address [address] [place] [address] Care Team Providers Care Vending Attendant Name Role Phone Rufina Adler Primary Care Provider [phone]- [phone] Encounters Date Type Department Care Team Description 12/07/[address] [place] [phone] Rufina Adler PA 12/05/2024 Orders Only [address] [place] [phone] Rufina Adler PA 12/05/[address] [place] [phone] Rufina Adler PA 12/05/[address] [place] [phone] Rufina Adler PA 12/05/[address] [place] [phone] Rufina Adler PA 11/09/2024 7:00 AM [employer] Office Visit [address] [place] [phone] Rufina Adler PA Primary hypertension (Primary Dx); Breast cancer screening by mammogram; Colon cancer screening; BMI 28.0-28.9,adult from Last 3 Months Allergies No known active allergies Medications ascorbic [...] 11/20/2024 Assessment & Plan (11/20/2024 4:22 PM [employer]): Patient is due for colon cancer screening. Referral placed Breast cancer screening by mammogram 11/20/2024 Assessment & Plan (11/20/2024 4:22 PM [employer]): Mammogram order provided BMI 28.0-28.9,adult 11/09/2024 Assessment & Plan (11/09/2024 7:19 AM [employer]): BMI Follow-up includes: Discussed diet and exercising counseling. Recurrent major depression 01/27/2024 Assessment & Plan (02/22/2024 9:18 PM CDT): Stable with Effexor 37.5. Sleep disturbance 10/27/2022 Assessment & Plan (10/27/2022 9:12 AM [employer]): Patient notes that she does have trouble [...] 10/27/2022 Assessment & Plan (10/27/2022 9:13 AM [employer]): Encouraged daily use of her Shavon and [...] supplement Assessment & Plan (10/29/2023 8:29 AM [employer]): Supplement Assessment & Plan (10/27/2022 9:08 AM [employer]): Supplement Assessment & Plan (11/27/2021 8:02 AM [employer]): Continue vitamin-D supplementation Assessment & Plan (10/17/2021 6:50 PM [employer]): Supplement Primary hypertension 10/17/2021 Assessment & Plan (11/20/2024 4:21 PM [employer]): Patient has stopped all her blood pressure [...] patient. Assessment & Plan (10/29/2023 8:29 AM [employer]): This is a significant, separately identifiable problem [...] 150. Assessment & Plan (11/29/2022 5:54 PM [employer]): Bp is stable/in acceptable range for any co-morbidities. Encouraged to limit sodium intake and exercise for weight control. Better controlled with the addition of the Bystolic. Continue 5 mg with the irbesartan. Will continue to monitor closely Assessment & Plan (10/27/2022 9:12 AM [employer] BU[employer]): This is a significant, separately identifiable problem [...] reassess. Assessment & Plan (11/27/2021 8:02 AM [employer]): BP is still elevated but improving. Increase [...] control. Assessment & Plan (10/17/2021 6:52 PM [employer]): This is a significant, separately identifiable problem [...] be the same. BMI 33.0-33.9,adult 10/29/2023 01/27/20 24 Assessment & Plan (10/29/2023 7:25 AM [employer]): Discussed the patient's BMI. The BMI is above average. BMI management plan is completed. BMI Follow-up includes: nutrition counseling, exercise counseling and education provided. Breast cancer screening by mammogram 10/29/2023 02/22/2024 Assessment & Plan (10/29/2023 8:30 AM [employer]): Mammogram order provided BMI 32.0-32.9,adult 11/25/2022 10/29/19 Assessment & Plan (01/24/2023 9:05 PM CDT): Discussed the patient's BMI. The BMI is above average. BMI management plan is completed. BMI Follow-up includes: nutrition counseling, exercise counseling and education provided. Assessment & Plan (11/25/2022 3:12 PM [employer]): Discussed the patient's BMI. The BMI is [...] provided. Assessment & Plan (10/29/2023 8:30 AM [employer]): Discussed the patient's BMI. The BMI is [...] provided. Assessment & Plan (11/25/2022 3:12 PM [employer]): Discussed the patient's BMI. The BMI is above average. BMI management plan is completed. BMI Follow-up includes: nutrition counseling, exercise counseling and education provided. Recurrent major depression 11/25/2022 0 11/29/2022 BMI 33.0-33.9,adult 10/27/2022 11/25/19 Assessment & Plan (10/27/2022 9:10 AM [employer]): Discussed the patient's BMI. The BMI is above average. BMI management plan is completed. BMI Follow-up includes: nutrition counseling, exercise counseling and education provided. Fatigue 10/27/2022 02/22/2024 Assessment & Plan (10/27/2022 9:10 AM [employer]): Probably multifactorial. Check labs and followup to re-evaluate Diabetes mellitus screening 10/27/2022 01/24/2023 Assessment & Plan (10/27/2022 9:10 AM [employer]): Check labs Lipid screening 10/27/2022 02/22/2024 Assessment & Plan (10/27/2022 9:10 AM [employer]): Check labs Encounter for screening mamm ogram for malignant neoplasm of breast 10/27/2022 10/29/2023 Assessment & Plan (10/27/2022 9:10 AM [employer]): Mammogram order provided Annual physical exam 10/27/2022 024 Assessment & Plan (10/29/2023 8:30 AM [employer]): Encouraged healthy lifestyle, good nutrition and exercise. Encouraged Calcium and Vitamin D and weight bearing exercise for bone health. Reviewed immunizations Reviewed age appropirate screenings. Assessment & Plan (10/27/2022 9:10 AM [employer]): Encouraged healthy lifestyle, good nutrition and exercise. Encouraged Calcium and Vitamin D and weight bearing exercise for bone health. Reviewed immunizations Reviewed age appropirate screenings. Obesity (BMI 30-39.9) 11/27/20212022 Assessment & Plan (10/27/2022 9:09 AM [employer]): Discussed the patient's BMI. The BMI is above average. BMI management plan is completed. BMI Follow-up includes: nutrition counseling, exercise counseling and education provided. Assessment & Plan (11/27/2021 7:37 AM [employer]): Obesity is unchanged. Discussed the patient's BMI. [...] provided. Assessment & Plan (11/27/2021 7:37 AM [employer]): Obesity is unchanged. Discussed the patient's BMI. The BMI is above average. BMI management plan is completed. BMI Follow-up includes: nutrition counseling, exercise counseling and education provided. BMI 29.0-29.9,adult 10/17/2021 11/28/19 22 Assessment & Plan (10/17/2021 2:24 PM [employer]): Weight/BMI is in healthy range. Continue healthy lifestyle to maintain. Diabetes mellitus screening 10/17/2021 11/27/2021 Assessment & Plan (10/17/2021 6:49 PM [employer]): Check labs Lipid screening 10/17/2021 11/27/2021 Assessment & Plan (10/17/2021 6:49 PM [employer]): Check labs Fatigue 10/17/2021 11/27/2021 Assessment & Plan (10/17/2021 6:50 PM [employer]): Probably multifactorial. Check labs and followup to re-evaluate Stress 10/17/2021 02/22/2024 Assessment & Plan (10/29/2023 8:29 AM [employer]): Encouraged to continue Effexor 37.5 daily. Reminded [...] dose Assessment & Plan (11/29/2022 5:54 PM [employer]): Patient continues to have increased stress and [...] weeks Assessment & Plan (11/27/2021 8:03 AM [employer]): Is noting a little improvement with the Bystolic. Will continue to monitor. Assessment & Plan (10/17/2021 6:53 PM [employer]): This is a significant, separately identifiable problem [...] 022 Assessment & Plan (10/17/2021 6:54 PM [employer]): Encouraged healthy lifestyle, good nutrition and exercise. Encouraged Calcium and Vitamin D and weight bearing exercise for bone health. Reviewed immunizations Reviewed age appropirate screenings. Seasonal allergic rhinitis due to pollen 10/17/2021 11/27/2021 Assessment & Plan (10/17/2021 6:54 PM [employer]): Persistent allergic rhinitis/seasonal allergies. She is on [...] may use nasal saline spray for comfort. Immunizations Immunization Administration Dates Next Due Influenza, Unspecified 09/28/2024(Deferr ed: Patient Refused),09/28/2023(Deferred: Patient Refused),09/28/2023(Deferred: Patient Refused),09/28/2023(Deferred: Patient Refused),10/27/2022(Deferred: Patient Refused) Tdap 08/04/2024 Social History Tobacco Use Types Packs/Day Years [...] on file Legal Sex Female 1:43 PM [employer] Gender Identity Not on file Sexual Orientation Not on file Last Filed Vital Signs Vital Sign Reading Time Taken Comments Blood Pressure 122/82 11/09/2024 7:12 AM [employer] Pulse 89 11/09/2024 7:12 AM [employer] Temperature 36.9 C (98.5 F) 11/09/2024 7:12 AM [employer] Respiratory Rate 16 06/14/2024 7:25 AM CDT Oxygen Saturation 98% 11/09/2024 7:12 AM [employer] Inhaled Oxygen Concentration - - Weight 79.9 kg (176 lb 1.6 oz) 11/09/2024 7:12 A M [employer] Height 167.6 cm (5' 6 ) 11/09/2024 7:12 AM [employer] Body Mass Index 28.42 11/09/2024 7:12 AM [employer] BU[employer] Plan of Treatment Not on file Procedures Procedure Name Priority Date/Time Associated Diagnosis Comments VITAMIN D 25 HYDROXY Routine 11/02/2024 7:19 AM [employer] Vitamin D deficiency VITAMIN B12 Routine 11/02/2024 7:19 AM [employer] Fatigue, unspecified type TSH Routine 11/02/2024 7:19 AM [employer] Fatigue, unspecified type LIPID PANEL Routine 11/02/2024 7:19 AM [employer] Lipid screening HEMOGLOBIN A1C Routine 11/02/2024 7:19 AM [employer] Diabetes mellitus screening COMPREHENSIVE METABOLIC PANEL Routine 11/02/2024 7:19 AM [employer] Primary hypertension CBC WITH AUTO DIFFERENTIAL Routine 11/02/2024 7:19 AM [employer] BU[employer] Fatigue, unspecified type SCREENING MAMMOGRAM BILATERAL W FREDDIE Schedule Routine, Read Routine (OP Routine) 12/31/2023 Breast cancer screening by mammogram HM COLONOSCOPY Routine 03/15/2019 from Last 3 Months or Most Recently Relevant to Health Maintenance Results * CBC with auto differential (11/02/2024 7:19 AM F[employer] BUILDER) WBC 4.8 3.8 - 10.8 Thousand/u L [...] [facility] Blood 11/02/2024 7:19 AM [employer] BUILDER 11/02/2024 7:20 AM [employer] BUILDER Narrative [facility] - 11/03/2024 2:03 AM [employer] BU[employer]DER FASTING:YES FASTING: YES Rufina GRANT LAB BLOOD ORDERABLES Final Result Performing Organization Address City/State/[facility] Co de Phone Number [facility] [address] [place] [address] * Vitamin D 25 hydroxy (11/02/2024 7:19 AM F[employer] BUILDER) Vitamin D 25-OH 85 30 - 100 ng/mL [facility] Comment: Vitamin D Status 25-OH Vitamin D: Deficiency: <20 ng/mL Insufficiency: 20 - 29 ng/mL Optimal: > or = 30 ng/mL For 25-OH Vitamin D testing on patients on D2-supplementation and patients for whom quantitation of D2 and D3 fractions is required, the QuestAssureD(TM) 25-OH VIT D, (D2,D3), LC/MS/MS is recommended: order code 40773 (patients >2yrs). See Note 1 Note 1 For additional information, please refer to http://education.[employer].Mad Mimi/faq/SVS807 (This link is being provided for informational/ educational purposes only.) Blood 11/02/2024 7:19 AM [employer] BUILDER 11/02/2024 7:20 AM F[employer] BUILDER Narrative [facility] - 11/03/2024 2:03 AM F[employer] BUILDER FASTING:YES FASTING: YES Rufina GRANT LAB BLOOD ORDERABLES Final Result Performing Organization Address City/State/[facility] Co de Phone Number [facility] [address] [place] [address] * TSH (11/02/2024 7:19 AM F[employer] BUILDER) [facility] TSH 0.90 0.40 - 4.50 mIU/L [facility] Blood 11/02/2024 7:19 AM [employer] BUILDER 11/02/2024 7:20 AM [employer] BUILDER Narrative [facility] - 11/03/2024 2:03 AM F[employer] BUILDER FASTING:YES FASTING: YES Rufina GRANT LAB BLOOD ORDERABLES Final Result Performing Organization Address [facility] de Phone Number [facility] [address] [place] [address] * Hemoglobin A1c (11/02/2024 7:19 AM F[employer] BU[employer]DER) [facility] Hgb A1C 5.6 <5.7 % of total Hgb [facility] Comment: For the purpose of screening for the presence of diabetes: <5.7% Consistent with the absence of diabetes 5.7-6.4% Consistent with increased risk for diabetes (prediabetes) > or =6.5% Consistent with diabetes This assay result is consistent with a decreased risk of diabetes. Currently, no consensus exists regarding use of hemoglobin A1c for diagnosis of diabetes in children. According to [place] Diabetes Association (ADA) guidelines, hemoglobin A1c <7.0% represents optimal control in non- diabetic patients. Different metrics may apply to specific patient populations. Standards of Medical Care in Diabetes(ADA). Blood 11/02/2024 7:19 AM [employer] BUILDER 11/02/2024 7:20 AM F[employer] BUILDER Narrative [facility] - 11/03/2024 2:03 AM F[employer] BUILDER FASTING:YES FASTING: YES Rufina GRANT LAB BLOOD ORDERABLES Final Result Performing Organization Address [facility] Co de Phone Number [facility] [address] [place] [address] * Vitamin B12 (11/02/2024 7:19 AM F[employer] BUILDER) Vitamin B12 451 200 - 1,100 pg/mL [facility] Blood 11/02/2024 7:19 AM F[employer] BO[employer] BUILDER 11/02/2024 7:20 AM F[employer] BO[employer] BUILDER Narrative [facility] - 11/03/2024 2:03 AM F[employer] BUILDER FASTING:YES FASTING: YES Rufina GRANT LAB BLOOD ORDERABLES Final Result [facility] [address] [facility] [place] [address] * (ABNORMAL) Lipid panel (11/02/2024 7:19 AM F[employer] BUILDER) Pathologist [facility] Cholesterol 187 <200 mg/dL [facility] [...] factors. LDL-C is now calculated using the Nj-Yarbrough calculation, which is a validated novel method providing better accuracy than the Friedewald equation in the estimation of LDL-C. Nj CONNOLLY et al. AUBRIE. 2013;310(19): 8664-4489 (http://education.[employer].Mad Mimi/faq/KMZ352) Chol/HDL ratio 3.2 <5.0 (calc) [facility] Non-HDL, (LDL+VLDL) 129 <130 mg/dL (calc) [facility] Comment: For patients with diabetes plus 1 major ASCVD risk factor, treating to a non-HDL-C goal of <100 mg/dL (LDL-C of <70 mg/dL) is considered a therapeutic option. Blood 11/02/2024 7:19 AM F[employer] BO[employer] BUILDER 11/02/2024 7:20 AM F[employer] BUILDER Narrative [facility] - 11/03/2024 2:03 AM F[employer] BUILDER FASTING:YES FASTING: YES Rufina GRANT LAB BLOOD ORDERABLES Final Result [facility] [address] [place] [phone] * Comprehensive metabolic panel (11/02/2024 7:19 AM [employer] BU[employer]) Glucose 99 65 - 99 mg/dL [facility] [...] [facility] Blood 11/02/2024 7:19 AM F[employer] BUILDER 11/02/2024 7:20 AM F[employer] BUILDER Narrative [facility] - 11/03/2024 2:03 AM F[employer] BUILDER FASTING:YES FASTING: YES Rufina GRANT LAB BLOOD ORDERABLES Final Result [facility] [address] [place] [address] * Screening Mammogram Bilateral W Freddie (12/31/2023) Anatomical Region Laterality Modality Breast Bilateral Mammography Rufina GRANT IMG MAMMO PROCEDURES Final Result * HM COLONOSCOPY (03/15/2019) Historical Provider HEALTH MAINTENANCE Edited Result - Final from Last 3 Months or Most Recently Relevant to Health Maintenance Insurance [facility] [employer] Care Teams Vending Attendant Relationship Specialty Start Date End Date Rufina Adler PA [address] [facility] [address] [place] [address] PCP - General Internal Medicine 10/17/21
== END 2024-12-31 08:00 | disposition home or self-care (01) ==
LOC: ANHIMG 08:01
PROVIDERS: PCP Physician Assistant; Visit Provider Nurse Practitioner Family
DX: Z12.31 Encounter for screening mammogram for malignant neoplasm of breast (principal)
CPT/HCPCS: 77063; 77067